=== PATIENT | female | born 2005 | race Caucasian/White ===

== ENCOUNTER 2023-08-22 10:58 | Emergency (ER) | payer OTHER, SELFPAY ==
[2023-08-22 11:12] VITALS: BP 109/59; BP 112/60; PULSE 62; PULSE 80; RESP 18; TEMP 36.6; O2SAT 90; O2SAT 98; BMI 25.5
--- NOTE | 2023-08-22 11:19 | ED_ITS ---
HPI - Allergic Reaction General Chief complaint: Allergic Reaction Stated complaint: ALLERGIC RXN Time Seen by Provider: 08/22/23 11:05 Source: patient, family and EMS Mode of arrival: ambulatory Limitations: no limitations History of Present Illness HPI narrative: 18 yo female with prior mild allergies who developed diffuse hives, nausea, dyspnea at 10am - today she used old albuterol INH, took diclofenac for pain which she has not taken in many years. Has never had a reaction or anaphylaxis before. Diclofenac was at 9am. MD complaint: allergic reaction, hives and facial swelling Onset (ago): hour(s) (10am) Exposure: medication Symptoms: rash, itching, facial swelling, difficulty breathing and nausea Severity: severe Treatment prior to arrival: none Previous Allergic Reaction History: none Related Data Previous Rx's Medication Instructions Recorded epinephrine 0.3 mg/0.3 mL 0.3 mg (0.3 mL) IM Q10M PRN 08/22/23 injection, auto-injector anaphylaxis #2 ea Allergies Allergy/AdvReac Type Severity Reaction Status Date / Time azithromycin [From Zithromax] Allergy Unknown Verified 08/22/23 11:11 diclofenac Allergy Swelling Verified 08/22/23 11:18 ragweed pollen Allergy Rash Verified 08/22/23 11:11 Review of Systems Review of Systems: Constitutional : No Fever, No Chills ENT/Mouth : no oral swelling, No Hoarseness, No Swallowing Difficulty Eyes: No Eye Pain, No Swelling, No Redness Cardiovascular : No Chest Pain, No SOB Respiratory : No Cough, No Sputum, No Wheezing, No Smoke Exposure, No Dyspnea Gastrointestinal : pos Nausea, No Vomiting, No Diarrhea, No abdominal Pain Genitourinary : No Dysuria, No Urinary Frequency, No Hematuria Musculoskeletal : No joint pain, No Myalgias, No Joint Swelling Skin : No Skin Lesions, positive rash Neuro : No Weakness, No Numbness, No Headache Psych : No Anxiety/Panic, No Depression Heme/Lymph: No Bruising, No Lymphadenopathy Endocrine : No Polyuria, No Polydipsia All other systems reviewed and are negative FOR[facility]LY [facility] Past Medical History Attestation statement: The following information was validated with the patient. Medical History Asthma Allergies Social History Social History (Updated 08/22/23 @ 11:37 by Betsey Rodriguez DO) Patient Tobacco Use Status: Never used Tobacco Smoked in Last 30 Days: No Use of substances other than those prescribed or required for medical reasons: No Advance Directives: No Advance Directives Information Provided: No Patient : No Physical Exam ED Vital Signs: Vital Signs - 24 hr 08/22/23 11:12 08/22/23 11:35 08/22/23 11:43 Temperature 97.9 F 97.7 F Pulse Rate 80 78 70 Respiratory Rate 18 18 Blood Pressure 109/59 L 103/64 103/64 Pulse Oximetry 98 100 Oxygen Delivery Method Room Air Room Air 08/22/23 13:17 Temperature 98.5 F Pulse Rate 78 Respiratory Rate 19 Blood Pressure 94/51 L Pulse Oximetry 98 Oxygen Delivery Method Room Air BMI result Body Mass Index 25.5 Appearance: Alert. Oriented X3. No acute distress. Eyes: Pupils equal, round and reactive to light. ENT: Pharynx normal. Neck: Normal inspection. Neck supple. CVS: Normal heart rate and rhythm. Pulses normal. Respiratory: No respiratory distress. Breath sounds normal. no stridor Abdomen: Soft and nontender. Skin: diffuse red confluent hives noted on forehead, scalp, back, legs and arms. Extremities: No lower extremity edema. No calf ttp Neuro: Oriented X 3. No motor deficit. No sensory deficit. Course Course Course Narrative: symptoms fully resolved stable for DC prior to DC felt nauseated will give fluids and zofran reassess. Reevaluation(s) Reevaluation #1: feels much better stable for DC Medications Administered Discontinued Medications Generic Name Dose Route Start Last Admin Trade Name Freq PRN Reason Stop Dose Admin Diphenhydramine HCl 25 mg 08/22/23 11:12 08/22/23 11:34 Diphenhydramine Hcl 50 Mg/Ml Vial IVPUSH 08/22/23 11:13 25 mg ONCE ONE Administration Epinephrine 0.3 mg 08/22/23 11:12 08/22/23 11:35 Epinephrine 1 Mg/Ml Vial IM 08/22/23 11:13 0.3 mg STAT STA Administration Famotidine 20 mg 08/22/23 11:12 08/22/23 11:33 Famotidine/Pf 20 Mg/2 Ml Vial IVPUSH 08/22/23 11:13 20 mg ONCE ONE Administration Lactated Ringer's 1,000 mls @ 999 mls/hr 08/22/23 13:45 08/22/23 13:45 Lr IV 08/22/23 14:45 999 mls/hr .Q1H1M RAHUL Administration Methylprednisolone Sodium Succinate 125 mg 08/22/23 11:12 08/22/23 11:33 Methylprednisolone Sod Succ 125 Mg/2 Ml Vial IVPUSH 08/22/23 11:13 125 mg ONCE ONE Administration Ondansetron HCl 4 mg 08/22/23 13:40 08/22/23 13:44 Ondansetron Hcl 4 Mg/2 Ml Vial IVPUSH 08/22/23 13:41 4 mg ONCE ONE Administration Medical Decision Making Medical Decision Making MDM Narrative: 18 yo female with PMH of allergies but no anaphylaxis here with confluent hives, feels dyspnea, nausea at this time will need IM epi, steroids, benadryl and observation - no angioedema Differential Diagnosis Differential Diagnoses: The differential diagnosis associated with the presentation includes anaphylaxis Admission/Observation Consideration of admission/observation: Escalation of care including admission/observation considered observe x 2 hours post epi Independent Historian Clinical information obtained from an independent historian. History obtained from or confirmed by: Parent and EMS Prescription Management I considered prescription management with: Other Critical Care Time Critical Care Time Critical Care Time: Yes Total Critical Care Time: 35 Attestation: anaphylaxis treatment, IM epi I attest to this time spent taking care of the patient Discharge Plan Discharge Clinical Impression: Anaphylaxis Qualifiers: Encounter type: initial encounter Qualified Code(s): T78.2XXA - Anaphylactic shock, unspecified, initial encounter Patient Disposition: Home, Self-Care Instructions: Anaphylaxis (ED) Additional Instructions: no more NSAIDs, throw away that inhaler. you can take tylenol for pain no more diclofenac return for swelling, difficulty breathing, hives or any other concerns carry your epi pen with you at all times can take zyrtec or claritin for the next few days as needed for symptoms. Prescriptions: New epinephrine 0.3 mg/0.3 mL auto-injector 0.3 mg IM Q10M PRN (Reason: anaphylaxis) Qty: 2 0RF Rx Instructions: for 2 doses
[2023-08-22] MEDS: methylPREDNISolone Sod Succ 125 MG/2 ML VIAL IVPUSH (11:33)
[2023-08-22] MEDS: Famotidine/PF 20 MG/2 ML VIAL IVPUSH (11:33)
[2023-08-22] MEDS: diphenhydrAMINE HCL 50 MG/ML VIAL 25 MG IVPUSH (11:34)
[2023-08-22 11:35] VITALS: BP 103/64; PULSE 78
[2023-08-22] MEDS: EPINEPHrine 1 MG/ML VIAL 0.3 MG IM (11:35)
[2023-08-22 11:43] VITALS: BP 103/64; PULSE 70; RESP 18; TEMP 36.5; O2SAT 100
[2023-08-22 13:17] VITALS: BP 94/51; PULSE 78; RESP 19; TEMP 36.9; O2SAT 98
--- NOTE | 2023-08-22 13:30 | PC.NURSE ---
PT WAS TO BE D/C HOME WITH FAMILY SAT IN A CHAIR C/O OF SLIGHT DIZZINESS AND HAD SCANT AMT OF N/V. MD AWARE. PT WAS RETURNED TO BED GIVEN ZOFRAN 4MG IVP AND LR 1L FOR FLUIDS.
[2023-08-22] MEDS: ondansetron HCL 4 MG/2 ML VIAL IVPUSH (13:44)
[2023-08-22] MEDS: Lactated Ringers 1,000 ML 999 ML IV (13:45)
[2023-08-22 14:53] VITALS: BP 92/54; PULSE 82; RESP 18; TEMP 36.4; O2SAT 96
== END 2023-08-22 15:07 | disposition home or self-care (01) ==
PROVIDERS: Emergency Provider Emergency Medicine; PCP Family Medicine
DX: L50.0 Allergic urticaria (principal); R11.2 Nausea with vomiting, unspecified; Z79.899 Other long term (current) drug therapy
CPT/HCPCS: 96361; 96372; 96374; 96375; 99284; J0171; J1200; J2405; J2930